=== PATIENT | female | born 1985 | race African-American/Black ===

== ENCOUNTER 2016-12-06 19:58 | Emergency (ER) | payer OTHER ==
[2016-12-06 19:59] VITALS: BP 118/79; PULSE 86; RESP 16; TEMP 99; O2SAT 100
--- NOTE | 2016-12-06 20:37 | PD ---
HPI Chief Complaint: Cold / Flu Symptoms Time Seen by Provider: 20:37 Travel History International Travel<30 days: No Contact w/Intl Traveler<30days: No Traveled to known affect area: No History of Present Illness HPI 31-year-old female presents versus [facility] for evaluation of cough and chest congestion. Patient states this began 4 days ago that has began to worsen. Her cough has become productive of a thick green sputum. Patient is concerned she has had pneumonia several times in the past. Has had subjective fever and chills with associated body aches. She has no other symptoms to report at this time. [facility] Past Medical History Medical History: Denies Significant Hx ?: Not Social History Alcohol Use: No Tobacco Use: No Substance Use: No Allergies-Medications (Allergen,Severity, Reaction): Coded Allergies: Azithromycin (Verified Allergy, Severe, 12/06/16) Reported Meds & Prescriptions Reported Meds & Active Scripts Active Proair Hfa 8.5 GM Inh (Albuterol Sulfate) 90 Mcg/Act Aer 2 Puff INH Q4-6H PRN 108 mcg/actuation Prednisone 50 Mg Tab 50 Mg PO DAILY 5 Days Doxycycline Hyclate 100 Mg Cap 100 Mg PO BID Review of Systems Except as stated in HPI: all other systems reviewed are Neg Physical Exam Narrative GENERAL: Well-nourished, well-developed female patient in no acute distress SKIN: Focused skin assessment warm/dry. HEAD: Normocephalic. EYES: No scleral icterus. No injection or drainage. NECK: Supple, trachea midline. No JVD or lymphadenopathy. CARDIOVASCULAR: Regular rate and rhythm without murmurs, gallops, or rubs. RESPIRATORY: Breath sounds coarse throughout, diminished bases, equal bilaterally. No accessory muscle use. GASTROINTESTINAL: Abdomen soft, non-tender, nondistended. MUSCULOSKELETAL: No cyanosis, or edema. BACK: Nontender without obvious deformity. No CVA tenderness. Data Data Last Documented VS Vital Signs Date Time Temp Pulse Resp B/P Pulse Ox O2 Delivery O2 Flow Rate FiO2 12/06/16 20:29 12/06/16 20:29 Room Air 12/06/16 19:59 99.0 86 16 100 Orders Group A Rapid Strep Screen (12/06/16 20:36) Influenzae A/B Antigen (12/06/16 20:36) Chest, Single Ap (12/06/16 ) Ketorolac Inj (Toradol Inj) (12/06/16 20:45) Strep Culture (Group A) (12/06/16 20:40) MDM Medical Decision Making Medical Screen Exam Complete: Yes Emergency Medical Condition: Yes Medical Record Reviewed: Yes Differential Diagnosis Pneumonia versus influenza versus common cold versus allergies Narrative Course 31-year-old female presents to the emergency department for evaluation of cough and chest congestion. Patient has coarse breath sounds with diminished bases. X-ray imaging is without acute concern. Influenza is negative. Strep screen is also negative. Patient discharged home at this time. She is encouraged to follow-up with a primary care provider and return immediately with any acute worsening symptoms. Diagnosis Primary Impression: URI (upper respiratory infection) Qualified Code: J06.9 - Upper respiratory tract infection, unspecified type Referrals: Primary Care Physician Patient Instructions: General Instructions, Upper Respiratory Infection (ED) Departure Forms: Tests/Procedures, Work Release Enter return to work date: December 09, 2016 Additional Instructions: Rest Maintain adequate oral hydration Tylenol and/or ibuprofen as directed on the package as needed for pain Follow-up with a primary care provider Return immediately with any acute worsening of symptoms Med/Other Pt SpecificInfo: Prescription(s) given Scripts Albuterol 8.5 GM Inh (Proair Hfa 8.5 GM Inh)90 Mcg/Act Aer2 Puff INH Q4-6H PRN ( SHORTNESS OF BREATH) #1 INHALER Ref 0 108 mcg/actuation Prov:Charmaine Ram 12/06/16 Prednisone 50 Mg Tab50 Mg PO DAILY 5 Days Ref 0 Prov:Charmaine Ram 12/06/16 Doxycycline Hyclate 100 Mg [id number] Mg PO BID #20 CAP Ref 0 Prov:Charmaine Ram 12/06/16 Disposition: 01 DISCHARGE HOME Condition: Stable Charmaine Ram December 06, 2016 20:37
[2016-12-06] MEDS ORDERED: KETOROLAC TROMETHAMINE 60 MG/2 ML (IM) VIAL IM ONE (20:45)
--- NOTE | 2016-12-06 21:02 | RADRPT ---
EXAM DATE/TIME: 12/06/2016 20:51 [place] COMPARISON: No previous studies available for comparison. INDICATIONS : Cough and pain with coughing and breathing. MEDICAL HISTORY : None. SURGICAL HISTORY : None. ENCOUNTER: Initial ACUITY: 4 - 6 days PAIN SCORE: 3/10 LOCATION: Throat. FINDINGS: A single view of the chest demonstrates the lungs to be symmetrically aerated without evidence of mas s, infiltrate or effusion. The cardiomediastinal contours are unremarkable. Osseous structures are intact. CONCLUSION: No evidence of acute cardiopulmonary disease. Tony Muse MD on December 06, 2016 at 21:00 Board Certified Radiologist. This report was verified electronically.
[2016-12-06] MEDS ORDERED: DOXY100C PO (21:19)
[2016-12-06] MEDS ORDERED: PRED50 PO (21:19)
[2016-12-06] MEDS ORDERED: ALBUAER3 INH (21:19)
== END 2016-12-06 21:39 | disposition home or self-care (01) ==
LOC: NEPK 19:58
DX: J06.9 Acute upper respiratory infection, unspecified (principal)
CPT/HCPCS: 71010; 87081; 87804; 87880; 96372; 99283; J1885